=== PATIENT | female | born 1955 | race Caucasian/White ===

== ENCOUNTER 2019-01-05 12:12 | Inpatient (IN) | payer SELFPAY, OTHER ==
[2019-01-05] MEDS: ONDANSETRON 4 MG INJ IV ×2 (15:47→18:10)
[2019-01-05] MEDS: SOD CHLORIDE 0.9% 1,000 ML IV (15:47)
[2019-01-05 15:49] LABS: ADD MAN DIFF? NO
[2019-01-05 15:53] LABS: WHITE BLOOD COUNT 19.6 10^3/ul (4.8-10.8)
[2019-01-05 15:53] LABS: BASOPHIL # 0.1 10^3/ul (0.0-0.1); BASOPHILS % 0.3 % (0.0-2.0); HEMATOCRIT 44.1 % (37.0-47.0); HEMOGLOBIN 14.7 g/dl (12.0-16.0); LYMPHOCYTES # 1.1 10^3/ul (0.8-2.9); LYMPHOCYTES % 5.6 % (15.0-51.0); MEAN CORPUSCULAR HEMOGLOBIN 30.5 pg (29.0-33.0); MEAN CORPUSCULAR HGB CONC 33.3 g/dl (32.0-37.0); MEAN CORPUSCULAR VOLUME 91.5 fl (82.0-101.0); MEAN PLATELET VOLUME 11.4 fl (7.4-10.4); MONOCYTE # 1.2 10^3/ul (0.3-0.9); NEUTROPHIL # 17.1 10^3/ul (1.6-7.5); NEUTROPHILS % 87.6 % (39.0-77.0); PLATELET COUNT 216 10^3/UL (140-415); RED BLOOD COUNT 4.82 10^6/ul (4.20-5.40); RED CELL DISTRIBUTION WIDTH 12.4 % (11.5-14.5)
[2019-01-05 16:11] LABS: ALANINE AMINOTRANSFERASE 25 IU/L (13-69); ALBUMIN 4.3 g/dl (3.3-4.9); ALKALINE PHOSPHATASE 109 IU/L (42-121); ANION GAP 13 (5-13); ASPARTATE AMINO TRANSFERASE 27 IU/L (15-46); BILIRUBIN,INDIRECT 1.2 mg/dl (0-1.1); BILIRUBIN,TOTAL 1.2 mg/dl (0.2-1.3); BLOOD UREA NITROGEN 17 mg/dl (7-20); CALCIUM 9.2 mg/dl (8.4-10.2); CARBON DIOXIDE 26 mmol/L (21-31); CHLORIDE 101 mmol/L (97-110); CREATININE 0.91 mg/dl (0.44-1.00); Estimated GFR > 60 mL/min (>60); GLUCOSE 133 mg/dl (70-220); LIPASE 131 U/L (23-300); SODIUM 140 mmol/L (135-144); TOTAL PROTEIN 8.2 g/dl (6.1-8.1)
[2019-01-05 17:13] LABS: URINE BLOOD (Dip) POC Trace-lysed (NEGATIVE); URINE GLUCOSE (Dip) POC Negative (NEGATIVE); URINE KETONES (Dip) POC Negative (NEGATIVE); URINE LEUKOCYTE EST (Dip) POC Negative (NEGATIVE); URINE NITRITE (Dip) POC Negative (NEGATIVE); URINE TOTAL PROTEIN POC Negative (NEGATIVE)
[2019-01-05] MEDS: PIPER-TAZO 3.375 GM IV (PMX) 100 ML IVPB (17:30)
[2019-01-05] MEDS: DEXTROSE 5%-0.45% NACL 1,000 ML IV (17:57)
[2019-01-05] MEDS ORDERED: ONDANSETRON 4 MG INJ IV (18:00)
[2019-01-05] MEDS ORDERED: DOCUSATE SODIUM 100 MG CAP PO (18:00)
[2019-01-05] MEDS ORDERED: NACL 0.9% 3 ML SYG IV (18:00)
[2019-01-05] MEDS ORDERED: MAGNESIUM HYDROXIDE 30ML CUP PO (18:00)
[2019-01-05] MEDS: morphine 2 MG INJ IV (18:09)
[2019-01-05] MEDS: ACETAMINOPHEN 650 MG SUPP PR (18:12)
[2019-01-05] MEDS: POTASSIUM CHLORIDE 100 ML IVPB ×3 (18:44→21:02)
[2019-01-05] MEDS: FAMOTIDINE 20 MG INJ IV (20:31)
[2019-01-06] MEDS: PIPER-TAZO 3.375 GM IV (PMX) 100 ML IVPB ×5 (00:35→22:27)
[2019-01-06] MEDS: morphine 2 MG INJ IV (00:39)
[2019-01-06] MEDS: POTASSIUM CHLORIDE 100 ML IVPB (01:30)
[2019-01-06] MEDS: DEXTROSE 5%-0.45% NACL 1,000 ML IV ×2 (03:57→12:07)
[2019-01-06 05:08] LABS: ADD MAN DIFF? NO
[2019-01-06 05:14] LABS: BASOPHIL # 0.1 10^3/ul (0.0-0.1); BASOPHILS % 0.4 % (0.0-2.0); EOSINOPHILS % 0.1 % (0.0-7.0); HEMATOCRIT 38.8 % (37.0-47.0); HEMOGLOBIN 12.9 g/dl (12.0-16.0); LYMPHOCYTES # 1.2 10^3/ul (0.8-2.9); LYMPHOCYTES % 8.9 % (15.0-51.0); MEAN CORPUSCULAR HEMOGLOBIN 30.2 pg (29.0-33.0); MEAN CORPUSCULAR HGB CONC 33.2 g/dl (32.0-37.0); MEAN CORPUSCULAR VOLUME 90.9 fl (82.0-101.0); MEAN PLATELET VOLUME 11.7 fl (7.4-10.4); MONOCYTE # 0.8 10^3/ul (0.3-0.9); MONOCYTES % 5.9 % (0.0-11.0); NEUTROPHIL # 11.2 10^3/ul (1.6-7.5); NEUTROPHILS % 84.3 % (39.0-77.0); PLATELET COUNT 196 10^3/UL (140-415); RED BLOOD COUNT 4.27 10^6/ul (4.20-5.40); RED CELL DISTRIBUTION WIDTH 12.8 % (11.5-14.5)
[2019-01-06 05:14] LABS: WHITE BLOOD COUNT 13.3 10^3/ul (4.8-10.8)
[2019-01-06 05:30] LABS: ALANINE AMINOTRANSFERASE 22 IU/L (13-69); ALBUMIN 3.4 g/dl (3.3-4.9); ALBUMIN/GLOBULIN RATIO 0.94; ALKALINE PHOSPHATASE 71 IU/L (42-121); ANION GAP 9 (5-13); ASPARTATE AMINO TRANSFERASE 25 IU/L (15-46); BILIRUBIN,INDIRECT 1.2 mg/dl (0-1.1); BILIRUBIN,TOTAL 1.2 mg/dl (0.2-1.3); BLOOD UREA NITROGEN 15 mg/dl (7-20); CARBON DIOXIDE 26 mmol/L (21-31); CHLORIDE 105 mmol/L (97-110); CREATININE 0.89 mg/dl (0.44-1.00); Estimated GFR > 60 mL/min (>60); GLUCOSE 128 mg/dl (70-220); MAGNESIUM 1.6 mg/dl (1.7-2.5); POTASSIUM 4.2 mmol/L (3.5-5.1); SODIUM 140 mmol/L (135-144)
[2019-01-06] MEDS: FAMOTIDINE 20 MG INJ IV ×2 (09:03→20:48)
[2019-01-06] MEDS ORDERED: KETOROLAC 15 MG INJ IV (12:00)
[2019-01-06] MEDS: MAGNESIUM SULFATE 2 GM/50 ML 50 ML IVPB (12:07)
[2019-01-06] MEDS: ACETAMINOPHEN 325 MG TAB PO (20:54)
[2019-01-07] MEDS: DEXTROSE 5%-0.45% NACL 1,000 ML IV ×2 (00:17→11:29)
[2019-01-07] MEDS: ACETAMINOPHEN 325 MG TAB PO (05:29)
[2019-01-07] MEDS: PIPER-TAZO 3.375 GM IV (PMX) 100 ML IVPB ×2 (05:30→13:17)
[2019-01-07] MEDS: FAMOTIDINE 20 MG INJ IV (09:11)
[2019-01-07] MEDS: morphine 2 MG INJ IV (09:14)
[2019-01-07 13:34] LABS: ADD MAN DIFF? NO
[2019-01-07 13:36] LABS: BASOPHIL # 0.1 10^3/ul (0.0-0.1); BASOPHILS % 0.7 % (0.0-2.0); EOSINOPHILS # 0.2 10^3/ul (0.0-0.5); EOSINOPHILS % 2.9 % (0.0-7.0); HEMATOCRIT 41.3 % (37.0-47.0); HEMOGLOBIN 13.4 g/dl (12.0-16.0); LYMPHOCYTES # 1.8 10^3/ul (0.8-2.9); LYMPHOCYTES % 23.6 % (15.0-51.0); MEAN CORPUSCULAR HEMOGLOBIN 30.3 pg (29.0-33.0); MEAN CORPUSCULAR HGB CONC 32.4 g/dl (32.0-37.0); MEAN CORPUSCULAR VOLUME 93.4 fl (82.0-101.0); MEAN PLATELET VOLUME 11.1 fl (7.4-10.4); MONOCYTE # 0.7 10^3/ul (0.3-0.9); MONOCYTES % 9.7 % (0.0-11.0); NEUTROPHIL # 4.7 10^3/ul (1.6-7.5); NEUTROPHILS % 62.7 % (39.0-77.0); PLATELET COUNT 189 10^3/UL (140-415); RED BLOOD COUNT 4.42 10^6/ul (4.20-5.40); RED CELL DISTRIBUTION WIDTH 12.2 % (11.5-14.5)
[2019-01-07 13:36] LABS: WHITE BLOOD COUNT 7.5 10^3/ul (4.8-10.8)
== END 2019-01-07 17:40 | disposition home or self-care (01) | DRG 395 ==
LOC: E/R 12:12 → MS1 17:26
DX: K35.80 Unspecified acute appendicitis (principal); E87.6 Hypokalemia; K76.0 Fatty (change of) liver, not elsewhere classified; R11.2 Nausea with vomiting, unspecified; M19.90 Unspecified osteoarthritis, unspecified site
CPT/HCPCS: 36415; 71045; 74176; 76705; 80053; 81003; 83690; 83735; 85025; 93005; 96374; 97161; 97167; 99285-25